=== PATIENT | male | born 1995 | race Native Hawaiian/Other Pacific Islander ===

== ENCOUNTER 2016-11-08 09:23 | Emergency (ER) | payer OTHER ==
[~2016-11-08] VITALS: Ht 182.9 cm; Wt 92.5 kg
[2016-11-08 09:26] VITALS: BP 149/67
== END 2016-11-08 10:39 | disposition home or self-care (01) ==
LOC: ED 09:23
DX: J30.2 Other seasonal allergic rhinitis (principal); R03.0 Elevated blood-pressure reading, without diagnosis of hypertension
CPT/HCPCS: J7613; J7644

== ENCOUNTER 2018-01-24 09:57 | Emergency (ER) | payer OTHER ==
[~2018-01-24] VITALS: Ht 182.9 cm; Wt 91.6 kg
[2018-01-24 10:01] VITALS: Ht 182.9 cm; Wt 91.6 kg
[2018-01-24 10:44] VITALS: BP 118/68
== END 2018-01-24 10:44 | disposition home or self-care (01) ==
LOC: ED 09:57
DX: H60.502 Unspecified acute noninfective otitis externa, left ear (principal)

== ENCOUNTER 2018-04-23 04:24 | Emergency (ER) | payer OTHER ==
[~2018-04-23] VITALS: Ht 182.9 cm; Wt 92.1 kg
[2018-04-23 04:31] VITALS: Ht 182.9 cm; Wt 92.1 kg
[2018-04-23 06:10] VITALS: BP 110/72
== END 2018-04-23 06:10 | disposition home or self-care (01) ==
LOC: ED 04:24
DX: S61.216A Laceration without foreign body of right little finger without damage to nail, initial encounter (principal); S01.01XA Laceration without foreign body of scalp, initial encounter; W22.8XXA Striking against or struck by other objects, initial encounter; Y93.89 Activity, other specified; Y92.89 Other specified places as the place of occurrence of the external cause; Y99.8 Other external cause status
CPT/HCPCS: 90715; J2001

== ENCOUNTER 2018-04-25 13:10 | Emergency (ER) | payer OTHER ==
[~2018-04-25] VITALS: Ht 182.9 cm; Wt 91.6 kg
[2018-04-25 13:14] VITALS: Ht 182.9 cm; Wt 91.6 kg
[2018-04-25 14:15] VITALS: BP 109/55
== END 2018-04-25 14:15 | disposition home or self-care (01) ==
LOC: ED 13:10
DX: S01.01XD Laceration without foreign body of scalp, subsequent encounter (principal); S61.411D Laceration without foreign body of right hand, subsequent encounter; S05.12XD Contusion of eyeball and orbital tissues, left eye, subsequent encounter; X58.XXXD Exposure to other specified factors, subsequent encounter

== ENCOUNTER 2018-04-28 11:42 | Emergency (ER) | payer OTHER ==
[~2018-04-28] VITALS: Ht 182.9 cm; Wt 90.8 kg
[2018-04-28 11:52] VITALS: Ht 182.9 cm; Wt 90.8 kg
[2018-04-28 12:40] VITALS: BP 121/62
== END 2018-04-28 12:40 | disposition home or self-care (01) ==
LOC: ED 11:42
DX: S01.01XA Laceration without foreign body of scalp, initial encounter (principal); S61.412D Laceration without foreign body of left hand, subsequent encounter; X58.XXXD Exposure to other specified factors, subsequent encounter